=== PATIENT | male | born 1945 | race Caucasian/White ===

== ENCOUNTER → 2017-07-07 09:11 | Day surgery (SDC) | payer MEDICARE, SELFPAY ==
[2017-07-01 12:46] LABS: Hematocrit 36.4 % (40-54); Hemoglobin 11.3 g/dl (13.0-16.5); Mean Corpuscular Hgb 29.8 pg (27.0-32.0); Platelet Count 97 K/mm3 (150-450); RBC Distribution Width CV 14.7 % (11.6-14.6); RBC Distribution Width SD 48.2 fl (35.1-43.9); Red Blood Count 3.79 M/mm3 (4.6-6.2); Scan Indicated on CBC? Y/N NO; White Blood Count 8.3 K/mm3 (4.4-11.0)
[2017-07-01 13:40] LABS: Anion Gap 6 (5-15); BUN 20 mg/dL (7-18); BUN/Creat Ratio 6.8 RATIO (10-20); Calcium,Total 7.7 mg/dL (8.5-10.1); Chloride 99 mmol/L (98-107); Creatinine, Serum 2.94 mg/dL (0.70-1.30); EST Glomerular Filtration Rate 22 mL/min (>60); Est Glom Filt Rate - Afr Amer 27 mL/min (>60); Glucose 111 mg/dL (74-106); Potassium 3.2 mmol/L (3.5-5.1); Sodium Level 140 mmol/L (136-145)
[2017-07-06 09:51] VITALS: BMI 37.0
[2017-07-07 09:25] LABS: Prothrombin Time Fingerstick 19.9 SEC (11.9-14.4)
[2017-07-07 09:46] LABS: Bedside Glucose 129 mg/dL (70-110)
--- NOTE | 2017-07-07 12:42 | PCM.OPRPT ---
Problem List (1) Problem with dialysis access Status: Acute Report of Operation Date of Procedure: 07/07/17 Pre-Operative Diagnosis: Problem with left forearm radiocephalic hemodialysis access Post-Operative Diagnosis: Proximal fistula venous stenosis Surgery/Procedure Performed:: Upper extremity fistulogram with 6 x 40 mm Powerflex angioplasty Description of Surgical Findings:: Amount and informed consent was obtained. 72-year-old gent was taken the special procedures lab. He received 25 mcg of fentanyl and 0.5 g of Versed. Left extremity sterilely prepped draped. Ultrasound was used to identify the cephalic vein in the proximal forearm. 2% lidocaine was instilled under ultrasound guidance. Micropuncture needle inserted. Micropuncture wire inserted. 6 Portuguese short sheath dilator was inserted. An 035 angled Glidewire was used to place a 4 Portuguese glide cath into the radial artery proximal to the anastomosis. Using Isovue contrast official gram was obtained of the left upper extremity. Subsequently there was felt to be a pseudoaneurysm within the proximal portion of the fistula and possibly stenosis and so I then placed a 6 x 40 mm Powerflex balloon. Balloon angioplasty was performed up to 16 crisotfer of pressure. The balloon did appear to improve the diameter of the vein at that spot. A follow-up official gram now demonstrated continued wide open flow in the proximal portion of the fistula adjacent to the radial artery. There was a good pulse, thrill, bruit within the fistula. The sheath was removed. U suture of 4-0 nylon was placed. The fistulogram demonstrates a left forearm radiocephalic AV fistula. There appears to be good forearm and upper arm and cephalic vein outflow in the chest. There is a pseudoaneurysm within 2 cm of the origin of the fistula at the radial artery. There appeared to be possibly some venous stenosis in that area and the diameter of the vein overall appear to be improved subsequent to the angioplasty. Impression Successfully treated left forearm arteriovenous hemodialysis fistula Giovanni Naylor M.D., F.A.C.S.
== END ==
PROVIDERS: Family Provider Family Medicine; PCP Family Medicine; Visit Provider Surgery
DX: N18.5 Chronic kidney disease, stage 5 (principal); E87.5 Hyperkalemia; J96.00 Acute respiratory failure, unspecified whether with hypoxia or hypercapnia; I73.9 Peripheral vascular disease, unspecified; E11.9 Type 2 diabetes mellitus without complications; I48.91 Unspecified atrial fibrillation; Z99.2 Dependence on renal dialysis; Z87.891 Personal history of nicotine dependence; Z79.4 Long term (current) use of insulin; Z79.82 Long term (current) use of aspirin; Z79.51 Long term (current) use of inhaled steroids; Z79.01 Long term (current) use of anticoagulants; Z79.899 Other long term (current) drug therapy
CPT/HCPCS: 36415; 36416; 36902; 76937; 80048; 82962; 85027; 85610; 99152; 99153; J3010; Q9967; C1769

== ENCOUNTER 2017-12-05 16:01 | Emergency (ER) | payer MEDICARE, SELFPAY ==
[2017-12-05 16:03] VITALS: BP 129/64; PULSE 70; RESP 18; TEMP 36.9; O2SAT 87; BMI 33.0
[2017-12-05 16:10] VITALS: PULSE 85; RESP 20; O2SAT 90
--- NOTE | 2017-12-05 16:27 | ED.VISSUMM ---
- ER Visit Summary Date of Service: 12/05/17 Chief Complaint: Restlessness History of Present Illness: The patient is a 72 M who presents for restlessness, especially in his legs, since this morning before dialysis. Patient receives hemodialysis on Tuesday and Tuesday. At the beginning of dialysis today he felt very restless, worst in his legs, and feels like he needs to move around. It did not improve with dialysis. He denies any chest pain, acute shortness of breath, nausea or vomiting, abdominal pain, or any other complaints other than the restless feeling. There is no pain associated with it. Patient has history of end-stage renal disease, COPD and is supposed to be on home oxygen at all times, and atrial fibrillation for which she is on Coumadin. Physical Examination: Vital signs: afebrile, hemodynamically stable, no hypoxia on room air General: well nourished, well developed, in no distress but appears uncomfortable Skin: warm, dry, no rash, no pallor HEENT: normocephalic and atraumatic; PERRL, EOMI, moist mucous membranes Cardiovascular: regular rate and rhythm without murmurs, no peripheral edema, 2+ pulses all distal extremities Respiratory: No increased work of breathing, lungs are clear to auscultation bilaterally, no rales, rhonchi or wheezing on oxygen Abdominal: Abdomen is soft, nontender with normoactive bowel sounds, no guarding or rebound, no masses MSK: Moves all extremities, no deformities, normal strength myoclonic jerking occasionally of an extremity, patient is very fidgety and has difficulty being still Neuro: Awake and alert, oriented ?4. No facial droop, sensation and motor function intact and symmetric Test Results: Abnormal Lab Results 12/05/17 12/05/17 12/05/17 16:40 16:40 16:40 WBC 6.9 RBC 3.54 L Hgb 10.2 L Hct 32.3 L MCV 91.2 MCH 28.8 MCHC 31.6 L RDW 15.9 H RDW Differential 53.2 H Plt Count 107 L MPV 10.8 Immature Gran % (Auto) 0.300 Neut % (Auto) 63.8 Lymph % (Auto) 25.8 Pendleton % (Auto) 7.7 Eos % (Auto) 1.7 Baso % (Auto) 0.7 Absolute Neuts (auto) 4.4 Absolute Lymphs (auto) 1.78 Total Counted Not Reportable PT 31.7 H INR 3.0 APTT 46.6 H Sodium 138 Potassium 3.6 Chloride 95 L Carbon Dioxide 32.0 Anion Gap 11 BUN 27 H Creatinine 3.75 H Estim Creat Clear Calc 16.72 Est GFR (MDRD) Af Amer 20 L Est GFR (MDRD) Non-Af 17 L BUN/Creatinine Ratio 7.2 L Glucose 264 H Calcium 7.7 L Magnesium 2.1 Total Bilirubin 0.50 AST 16 ALT 20 Alkaline Phosphatase 103 Troponin I < 0.015 Total Protein 7.7 Albumin 3.7 Globulin 4.0 Albumin/Globulin Ratio 0.9 POC Glucose 12/05/17 18:12 WBC RBC Hgb Hct MCV MCH MCHC RDW RDW Differential Plt Count MPV Immature Gran % (Auto) Neut % (Auto) Lymph % (Auto) Pendleton % (Auto) Eos % (Auto) Baso % (Auto) Absolute Neuts (auto) Absolute Lymphs (auto) Total Counted PT INR APTT Sodium Potassium Chloride Carbon Dioxide Anion Gap BUN Creatinine Estim Creat Clear Calc Est GFR (MDRD) Af Amer Est GFR (MDRD) Non-Af BUN/Creatinine Ratio Glucose Calcium Magnesium Total Bilirubin AST ALT Alkaline Phosphatase Troponin I Total Protein Albumin Globulin Albumin/Globulin Ratio POC Glucose 238 H Clinical Impression(s) from Imaging Studies Chest X-Ray 12/05/17 18:05 IMPRESSION: 1. Question atelectasis versus infiltrate at the right lung base. The study is otherwise unchanged. Electronically Signed: Jose Manuel Hurley DO at 19:00 EDT Tel [phone], Service support , Medications Given Discontinued Medications Diazepam (Valium) 2 mg IV X1 ONE Stop: 12/05/17 16:28 Last Admin: 12/05/17 17:52 Dose: Diazepam (Valium) 5 mg PO X1 ONE Stop: 12/05/17 17:03 Last Admin: 12/05/17 17:37 Dose: 5 mg Diazepam (Valium) 2 mg PO X1 ONE Stop: 12/05/17 19:37 Last Admin: 12/05/17 19:58 Dose: 2 mg Sodium Chloride () 250 mls @ 999 mls/hr IV .Q16M BISHOP Stop: 12/05/17 17:45 Last Admin: 12/05/17 17:37 Dose: 999 mls/hr Emergency Department Course and Treatment: Patient was given PO Valium to help with his restlessness (IV not available). Workup was performed to look for electrolyte derangements or other acute process to explain his restlessness. EKG showed no QT prolongation, peaked T waves, or other interval changes it would be concerning for an acute electrolyte abnormality. No dysrhythmias. Patient's had no electrolyte derangements. Creatinine was elevated as expected in a dialysis patient. Troponin negative. Chest x-ray showed right lower lobe infiltrate versus atelectasis, and patient has no symptoms consistent with pneumonia, denying cough, fever, shortness of breath, and having no findings on exam concerning for pneumonia. Thus this is likely atelectasis. Patient had improvement in his restlessness and muscle twitching after the Valium and was somnolent. Patient was given a prescription for Valium to use at home for further symptoms until he can follow up with his PCP. We discussed side effects of valium and strict precautions patient is to take while on it. Daughter present for conversation. Pt dc home in improved condition. Treatment Plan: [] Disposition: [] Impression: restlessness, uncontrolled muscle twitching This note was generated with [employer] dictation software. It may contain incorrect words, spelling, and punctuation that were not noted in review of the chart prior to signing ED Disposition - Plan for ED Patient: Disposition: Home or Assisted Living Chief Complaint: Weakness Instructions: Understanding Restless Legs Syndrome, ED Spasm Muscle Prescriptions: Diazepam [Valium] 2 mg PO TID PRN PRN #10 tab PRN Reason: muscle twitching, restlessness Referrals: Faizan Oliva MD [Primary Care Provider] - 1-2 Days if not improving Additional Instructions: You have been given Valium to help with your restlessness and muscle spasms/twitching. Please be very careful while taking this medication and do not do anything that will put you in danger of falling or getting injured, as the medication may make you sleepy. Follow-up with your doctor as soon as possible to discuss the new restlessness and muscle twitching you are experiencing. If you have any worsening of your condition or any new concerning symptoms, please return immediately to the emergency department for another evaluation.
[2017-12-05 16:47] VITALS: O2SAT 92
[2017-12-05 16:51] LABS: Absolute Lymphocyte Count 1.78 X10^3/ul (0.83-4.51); Absolute Neutrophil Count 4.4 X10^3/uL (2.0-7.7); Basophil# 0.05 X10^3/uL; Basophil% 0.7 % (0-1); Eosinophil# 0.12 X10^3/uL; Eosinophils% 1.7 % (0-5); Hematocrit 32.3 % (40-54); Hemoglobin 10.2 g/dl (13.0-16.5); Lymphocyte # 1.78 X10^3/ul (4.0); Lymphocyte % 25.8 % (19-41); Mean Corp Hgb Conc 31.6 g/gl (32-36); Mean Corpuscular Hgb 28.8 pg (27.0-32.0); Mean Corpuscular Volume 91.2 fL (80-94); Mean Platelet Vol. 10.8 fl (6.2-12.0); Monocyte# 0.53 X10^3/uL; Monocyte% 7.7 % (0-10); Neutrophil % 63.8 % (47-70); POSITIVE COUNT NO; POSITIVE DIFFERENTIAL NO; POSITIVE MORPHOLOGY NO; Platelet Count 107 K/mm3 (150-450); RBC Distribution Width CV 15.9 % (11.6-14.6); RBC Distribution Width SD 53.2 fl (35.1-43.9); Red Blood Count 3.54 M/mm3 (4.6-6.2); White Blood Count 6.9 K/mm3 (4.4-11.0)
[2017-12-05 17:13] LABS: Prothrombin Time (Protime)PT. 31.7 SECONDS (11.7-14.9)
[2017-12-05 17:14] LABS: Partial Thromboplast Time 46.6 Seconds (24.1-36.2)
[2017-12-05 17:15] LABS: ALB/GLOB Ratio 0.9 RATIO (0.9-2.4); AST(SGOT) 16 U/L (15-37); Alanine Aminotransfer ALT/SGPT 20 U/L (16-61); Albumin, Serum 3.7 g/dL (3.2-5.0); Alkaline Phosphatase 103 U/L (45-117); Anion Gap 11 (5-15); BUN 27 mg/dL (7-18); BUN/Creat Ratio 7.2 RATIO (10-20); Calcium,Total 7.7 mg/dL (8.5-10.1); Chloride 95 mmol/L (98-107); Creatinine, Serum 3.75 mg/dL (0.70-1.30); EST Glomerular Filtration Rate 17 mL/min (>60); Est Glom Filt Rate - Afr Amer 20 mL/min (>60); Estimated Creatinine Clearance 16.72 ml/min; Glucose 264 mg/dL (74-106); Magnesium 2.1 mg/dL (1.6-2.6); Potassium 3.6 mmol/L (3.5-5.1); Protein, Total 7.7 g/dL (6.4-8.2); Sodium Level 138 mmol/L (136-145)
[2017-12-05] MEDS: diazePAM 5 MG Tablet PO (17:37)
[2017-12-05 18:21] LABS: Bedside Glucose 238 mg/dL (70-110)
--- NOTE | 2017-12-05 19:41 | DCINST.ED_ITS ---
ED Disposition - Plan for ED Patient: Chief Complaint: Weakness Instructions: Understanding Restless Legs Syndrome, ED Spasm Muscle Prescriptions: Diazepam [Valium] 2 mg PO TID PRN PRN #10 tab PRN Reason: muscle twitching, restlessness Referrals: Faizan Oliva MD [Primary Care Provider] - 1-2 Days if not improving Additional Instructions: You have been given Valium to help with your restlessness and muscle spasms/ twitching. Please be very careful while taking this medication and do not do anything that will put you in danger of falling or getting injured, as the medication may make you sleepy. Follow-up with your doctor as soon as possible to discuss the new restlessness and muscle twitching you are experiencing. If you have any worsening of your condition or any new concerning symptoms, please return immediately to the emergency department for another evaluation.
[2017-12-05 19:43] VITALS: BP 112/78; PULSE 67; RESP 16; O2SAT 91
[2017-12-05] MEDS: diazePAM 2 MG Tablet PO (19:58)
--- NOTE | 2017-12-05 19:58 | ED.RN ---
ONLY ONE TABLET CAME FROM PHARMACY TO TAKE HOME, AND FAMILY DOESN'T WANT TO WAIT FOR ANOTHER TABLET PRIOR TO DISCHARGE. PATIENT USES O2 AT HOME PERIODICALLY AND DOES NOT HAVE O2 HERE.
== END 2017-12-05 20:01 | disposition home or self-care (01) ==
LOC: ED 17:51
PROVIDERS: Emergency Provider Emergency Medicine; Family Provider Family Medicine; PCP Family Medicine
DX: R45.1 Restlessness and agitation (principal); R25.3 Fasciculation; J44.9 Chronic obstructive pulmonary disease, unspecified; N18.6 End stage renal disease; Z99.2 Dependence on renal dialysis; I48.91 Unspecified atrial fibrillation; Z91.19 Patient's noncompliance with other medical treatment and regimen; Z79.4 Long term (current) use of insulin; Z79.01 Long term (current) use of anticoagulants; Z79.82 Long term (current) use of aspirin; Z79.899 Other long term (current) drug therapy
CPT/HCPCS: 71045; 80053; 82962; 83735; 84484; 85025; 85610; 85730; 93005; 99285; J7040; J7050; A4216

== ENCOUNTER 2017-12-16 13:56 | Emergency (ER) | payer MEDICARE, SELFPAY ==
[2017-12-16] VITALS (12 sets, daily range): BP systolic 59–133; BP diastolic 25–116; PULSE 62–118; RESP 14–23; TEMP 36.3–37.6; O2SAT 80–98; BMI 36.7
--- NOTE | 2017-12-16 14:23 | EKG12_ITS ---
Test Reason : ALTERED MENTAL STATU Blood Pressure : / mmHG Vent. Rate : 092 BPM Atrial Rate : 091 BPM P-R Int : 000 ms QRS Dur : 076 ms QT Int : 386 ms P-R-T Axes : 000 258 127 degrees QTc Int : 477 ms Atrial fibrillation Right superior axis deviation Nonspecific ST and T wave abnormality Abnormal ECG Confirmed by NANETTE FELICIANO, JACKIE ([id number]), brands editor FERNANDO LEIGH ([id number]) on 12/19/2017 3:13:10 PM Referred By: CRIS/CHARO Confirmed By:JACKIE FITZPATRICK MD
--- NOTE | 2017-12-16 14:25 | RAD_ITS ---
STUDY: X-RAY CHEST REASON FOR EXAM: Male, 72 years old. Confusion TECHNIQUE: Single AP portable view of the chest. COMPARISON: 12/05/2017 FINDINGS: EKG leads overlie the chest There are interstitial fibrotic changes of the lungs. There is no demonstrated pleural abnormality. Normal size heart. Normal mediastinum and ramesh. Normal visualized pulmonary arteries. There is atherosclerotic calcification of the aortic arch with tortuosity. There are diffuse degenerative changes of the visualized thoracic spine. There is degenerative osteoarthritis of the bilateral shoulders. There is no demonstrated abnormality of the visualized soft tissue structures of the upper abdomen. RAD/Chest 1 View (Portable) IMPRESSION: Degenerative changes, as described above. No demonstrated acute cardiopulmonary process. Electronically Signed: Constantino Begum MD at 14:38 EDT , Service support ,
[2017-12-16 14:41] LABS: International Normalized Ratio 1.6; Prothrombin Time (Protime)PT. 19.5 SECONDS (11.7-14.9)
[2017-12-16 14:42] LABS: Absolute Lymphocyte Count 1.38 X10^3/ul (0.83-4.51); Absolute Neutrophil Count 6.9 X10^3/uL (2.0-7.7); Basophil# 0.05 X10^3/uL; Basophil% 0.6 % (0-1); Eosinophil# 0.13 X10^3/uL; Eosinophils% 1.5 % (0-5); Hematocrit 30.6 % (40-54); Hemoglobin 9.5 g/dl (13.0-16.5); Lymphocyte # 1.38 X10^3/ul (4.0); Lymphocyte % 15.5 % (19-41); Mean Corpuscular Hgb 28.8 pg (27.0-32.0); Mean Corpuscular Volume 92.7 fL (80-94); Mean Platelet Vol. 10.3 fl (6.2-12.0); Monocyte# 0.49 X10^3/uL; Monocyte% 5.5 % (0-10); Neutrophil # 6.86 X10^3/uL (2.7-7.7); Neutrophil % 76.7 % (47-70); POSITIVE COUNT NO; POSITIVE DIFFERENTIAL NO; POSITIVE MORPHOLOGY NO; Partial Thromboplast Time 35.8 Seconds (24.1-36.2); Platelet Count 110 K/mm3 (150-450); RBC Distribution Width CV 16.2 % (11.6-14.6); RBC Distribution Width SD 54.9 fl (35.1-43.9); White Blood Count 8.9 K/mm3 (4.4-11.0)
[2017-12-16 14:55] LABS: AST(SGOT) 15 U/L (15-37); Alanine Aminotransfer ALT/SGPT 17 U/L (16-61); Albumin, Serum 3.7 g/dL (3.2-5.0); Alkaline Phosphatase 95 U/L (45-117); Anion Gap 11 (5-15); BUN 26 mg/dL (7-18); BUN/Creat Ratio 7.5 RATIO (10-20); Chloride 93 mmol/L (98-107); Creatinine, Serum 3.47 mg/dL (0.70-1.30); EST Glomerular Filtration Rate 18 mL/min (>60); Est Glom Filt Rate - Afr Amer 22 mL/min (>60); Estimated Creatinine Clearance 16.25 ml/min; Globulin 4.3 g/dL (2.2-4.2); Glucose 240 mg/dL (74-106); Lactic Acid 1.5 mmol/L (0.4-2.0); Lipase 399 U/L (73-393); Potassium 3.8 mmol/L (3.5-5.1); Sodium Level 137 mmol/L (136-145)
[2017-12-16 15:06] LABS: Base Excess 15 mmol/L (-2 to +2); Blood Gas Specimen Type ART; O2 Delivery Device NRB Mask; PO2 248 mmHG (75-100); SITE R Brachial; SO2 100 % (95-99); Time Given 1455; Total Carbon Dioxide 39 mmol/L; pCO2 44.9 mmHg (35-45); pH 7.54 (7.35-7.45)
[2017-12-16] MEDS: LORazepam 2 MG/ML Syringe 0.5 MG IV (15:07)
[2017-12-16] MEDS: Haloperidol Lactate 5 MG/ML Vial IM ×2 (15:17→16:24)
--- NOTE | 2017-12-16 15:30 | EKG12_ITS ---
Test Reason : SOB Blood Pressure : / mmHG Vent. Rate : 096 BPM Atrial Rate : 277 BPM P-R Int : 000 ms QRS Dur : 072 ms QT Int : 356 ms P-R-T Axes : 000 243 109 degrees QTc Int : 449 ms Atrial fibrillation with premature ventricular or aberrantly conducted complexes Right superior axis deviation Low voltage QRS Cannot rule out Inferior infarct , age undetermined Abnormal ECG Confirmed by NANETTE FELICIANO, JACKIE ([id number]), book editor FERNANDO LEIGH ([id number]) on 12/19/2017 3:13:30 PM Referred By: CRIS Confirmed By:JACKIE FITZPATRICK MD
--- NOTE | 2017-12-16 15:33 | CPS ---
Pt refused to wear bipap and took off mask after a few minutes.
--- NOTE | 2017-12-16 15:51 | CT_ITS ---
STUDY: CT BRAIN WITHOUT CONTRAST REASON FOR EXAM: Male, 72 years old. Altered mental status and confusion RADIATION DOSAGE (If Supplied By Facility): CTDIvol = ( 44.99 ) mGy, DLP = ( 931.09 ) mGycm TECHNIQUE: Transaxial CT imaging of the brain was performed without administration of intravenous contrast material. Individualized dose optimization techniques were used for this CT. COMPARISON: 04/10/2016 FINDINGS: Normal soft tissue structures. Normal calvarium. Acute right subdural hemorrhage along the falx and right parietal region. Maximum thickness is approximately 6 mm. There is mild cerebral atrophy with widening of the extra-axial spaces and ventricular dilatation. There are areas of decreased attenuation within the white matter tracts of the supratentorial brain, consistent with microvascular disease changes. Normal basal ganglia and thalami. Normal brainstem. There is mild cerebellar atrophy. Normal visualized paranasal sinuses. CT/Brain/Head without Contrast IMPRESSION: Acute right subdural hematoma along the falx and right parietal region. Maximum thickness of 6 mm. No midline shift or significant mass effect. Age related changes elsewhere, N.B. : The above information has been verbally conveyed by Constantino Begum MD to Nicky Banda MD, Array, on 12/16/2017 16:51:09 (ET). Electronically Signed: Constantino Begum MD at 16:45 EDT , Service support ,
--- NOTE | 2017-12-16 16:55 | RAD_ITS ---
STUDY: X-RAY CHEST REASON FOR EXAM: Male, 72 years old. ET tube placement, nasogastric tube placement TECHNIQUE: Single AP portable view of the chest. COMPARISON: Prior study of 914 18-30 1:00 PM FINDINGS: A nasogastric tube is present with the tip in the abdomen out of the [id number] of the study. An endotracheal tube is seen with the tip 2.8 cm proximal to the bruno. There is a limited inspiration. There are atelectatic changes of the left lung base, new in the interval. Diffuse interstitial fibrotic changes of the lungs are seen. There is a small left-sided effusion, new in the interval. Normal size heart. Normal mediastinum and ramesh. Normal visualized pulmonary arteries. There are calcified plaques of the aortic arch. Normal visualized thoracic spine. Normal visualized ribs, clavicles, and shoulders. There is no demonstrated abnormality of the visualized soft tissue structures of the upper abdomen. RAD/Chest 1 View (Portable) IMPRESSION: Diffuse interstitial fibrotic changes of the lungs are noted. Nasogastric and endotracheal tubes are present appearing in adequate position. Small left-sided effusion and left basilar atelectasis representing new interval findings. Calcified plaques of the aortic arch. Electronically Signed: Bishop Suarez MD at 17:56 EDT , Service support ,
--- NOTE | 2017-12-16 17:05 | NURSING ---
CALLED [facility] FOR TRANSFER.
--- NOTE | 2017-12-16 17:39 | ED.DCSUM_ITS ---
- ER Visit Summary Date of Service: 12/16/17 Chief Complaint: Confusion, agitation History of Present Illness: The patient is a 72 M sent in by PCP by paramedics. Patient is accompanied by his ex-. She reports the patient has been having agitation and increased restlessness since Day. He was seen in the ER on the third and his primary complaint at that time was restlessness in his legs. He was given Valium. Family states that he is been waxing and waning since that time but seems to worsen today. He did go to dialysis today but stopped after 3 out of the 4 hours of his treatment. He went to PCP and was sent to the ER by squad. On arrival patient is very restless and stating that he just wants a shot to calm him down. He denies chest pain or shortness of breath. Family states he is supposed to wear home oxygen but is noncompliant. History significant for diabetes, hypertension, high cholesterol, pulmonary hypertension, dialysis, pink otitis, atrial fibrillation. Medication list is reviewed and does include Coumadin. Physical Examination: Blood pressure is 128/45, temperature 99.6, heart rate 92 , respiratory rate 20, pulse ox 85% on 3 L nasal cannula. Patient is sitting upright in bed. He is rocking back and forth. He stating he just feels like he cannot sit still and needs a shot to help him calm down. Head neck examination was no external sign of trauma. Heart is regular rate and rhythm. Lung sounds are clear. Abdomen is soft, obese, nontender. Neuro exam reveals patient is moving all 4 extremities. He is agitated and restless. Test Results: Portable chest x-ray shows degenerative changes. There is no acute process noted. EKG is A. fib at 96. PVC is noted. No sign of acute ischemia. CBC was a white count that is normal with hemoglobin 9.5. Chemistry studies reveal glucose of 240, BUN 26, creatinine 3.47. LFTs and lipase are grossly unremarkable. INR is subtherapeutic at 1.6. His troponin is less than 0.015. ABG was obtained and reveals a pH of 7.54, PO2 of 248, PCO2 of 44.9, O2 sat 100%. At the time the ABG was obtained to the pulse ox on the monitor was reading 84%. Emergency Department Course and Treatment: Patient was initially given 0.5 mg of Ativan IV followed by 0.5 mg of Haldol IM. Patient was resting comfortably. Long discussion was had with family. Now that his agitation seems to be under better control decision was made to take him to CT. Patient did require an additional dose of Haldol while in CT. Head CT reveals evidence of an acute right subdural hemorrhage along the falx in the right parietal region. Maximum thickness is 6 mm. No shift or mass-effect is noted. After returning from CT, patient remains restless and wanting to get out of bed. Decision is made at that time to intubate the patient. Patient was given 20 mg of etomidate and intubated with a 7.5 tube. Patient got a propofol bolus and drip. Patient has been discussed with neurosurgery and financial systems analyst at [facility] patient has been accepted in transfer. Treatment Plan: [] Disposition: Transfer Impression: 1. Subdural hemorrhage 2. Chronic renal failure 3. Coumadin coagulopathy This note was generated with [employer] dictation software. It may contain incorrect words, spelling, and punctuation that were not noted in review of the chart prior to signing ED Disposition - Plan for ED Patient: Chief Complaint: Alt LOC Referrals: Faizan Oliva MD [Primary Care Provider] -
[2017-12-16] MEDS: Phytonadione (Vit K) 10 MG/ML Ampul 5 MG SC (17:41)
[2017-12-16 17:46] LABS: Base Excess 14 mmol/L (-2 to +2); Bicarbonate 37.1 mmol/L (22-26); Blood Gas Specimen Type ART; FI02 100; Mode A-C; O2 Delivery Device Vent; PEEP 5; PO2 301 mmHG (75-100); RR 14; SITE R Brachial; SO2 100 % (95-99); Time Given 1730; Total Carbon Dioxide 39 mmol/L; Vt 500; pCO2 49.3 mmHg (35-45); pH 7.49 (7.35-7.45)
--- NOTE | 2017-12-16 17:46 | NURSING ---
PATIENT INTUBATED AT 1646, GIVEN 20MG OF ETOMIDATE IVP, 40MG PROPOFOL IVP BY DR. MANCILLA AND PROPOFOL DRIP STARTED AT 1649.
--- NOTE | 2017-12-16 18:04 | NURSING ---
[facility] [id number] REPORT [phone]
--- NOTE | 2017-12-16 18:18 | NURSING ---
CALLED [facility] FOR TRANSPORT. ETA IS FROM [place]
--- NOTE | 2017-12-16 18:59 | ED.RN ---
restless, moving upper ext x2. increased propofol to 30 mcg/kg/min. Dr roach made aware.
--- NOTE | 2017-12-16 19:06 | ED.RN ---
BP 59/25, PROPOFOL STOPPED. IVF OPENED W/O. TO GIVE [address] BOLANOS.
[2017-12-16] MEDS: Midazolam 2 MG/2 ML Syringe IV (19:08)
== END 2017-12-16 20:13 | disposition short-term general hospital (02) ==
PROVIDERS: Emergency Provider Emergency Medicine; Family Provider Family Medicine; PCP Family Medicine
DX: I62.01 Nontraumatic acute subdural hemorrhage (principal); I12.9 Hypertensive chronic kidney disease with stage 1 through stage 4 chronic kidney disease, or unspecified chronic kidney disease; E11.22 Type 2 diabetes mellitus with diabetic chronic kidney disease; N18.9 Chronic kidney disease, unspecified; E78.00 Pure hypercholesterolemia, unspecified; I27.20 Pulmonary hypertension, unspecified; I48.91 Unspecified atrial fibrillation; E66.9 Obesity, unspecified; Z79.01 Long term (current) use of anticoagulants; Z99.81 Dependence on supplemental oxygen; Z99.2 Dependence on renal dialysis; Z91.19 Patient's noncompliance with other medical treatment and regimen; Z87.891 Personal history of nicotine dependence; Z79.82 Long term (current) use of aspirin; Z79.4 Long term (current) use of insulin; Z79.899 Other long term (current) drug therapy
CPT/HCPCS: 31500; 36430; 36600; 70450; 71045; 80048; 80076; 82803; 83605; 83690; 84484; 85025; 85610; 85730; 86900; 86901; 87040; 93005; 94002; 96361; 96372; 96374; 96375; 99251; 99285; J7030; J7040; P9017; A4216; G0463

== ENCOUNTER → 2017-12-16 14:03 | Outpatient (CLI) | payer MEDICARE, SELFPAY ==
[2017-12-16 14:26] LABS: International Normalized Ratio 1.7; Prothrombin Time (Protime)PT. 20.4 SECONDS (11.7-14.9)
== END ==
PROVIDERS: Visit Provider Family Medicine
DX: I48.91 Unspecified atrial fibrillation (principal)
CPT/HCPCS: 85610